=== PATIENT | female | born 1985 | race Caucasian/White ===

== ENCOUNTER → 2016-08-20 | Outpatient (CLI) | payer BC, MEDICARE ==
[2016-08-20 11:37] LABS: Blood Urea Nitrogen 11 mg/dL (7-17); Non-African American GFR(MDRD) >60 (>60 ml/min/1.73 sqM)
== END | disposition home or self-care (01) ==
LOC: LABWHC1 10:31
PROVIDERS: ATTEND Psychiatry & Neurology Neurology
DX: R51 Headache (principal)
CPT/HCPCS: 36415; 82565; 84520

== ENCOUNTER → 2016-08-24 | Outpatient (CLI) | payer BC, MEDICARE ==
--- NOTE | 2016-08-24 10:50 | MR ---
MRI of the brain with and without contrast HISTORY: Headaches. COMPARISON: 02/13/2016 TECHNIQUE: T1-weighted sagittal, T2, FLAIR, and diffusion axial, postcontrast T1 axial and coronal vi ews of the brain are submitted. CONTRAST: 13 mL FINDINGS: There is no evidence of acute ischemia. The ventricles, basal cisterns, and sulci overlying the co nvexities are consistent with the patient's age. There is no mass effect or enhancing mass. Craniocervical junction maintained. Sella turcica has a normal appearance. No evidence of cerebellopo ntine angle mass. Changes of mild chronic sinusitis. WHITE MATTER: Previous noted 2 punctate areas within the white matter as well-seen on today's exam. IMPRESSION: 1. No acute intracranial process
== END | disposition home or self-care (01) ==
LOC: RADMRIMAIN 08:35
PROVIDERS: ATTEND Psychiatry & Neurology Pain Medicine
DX: R51 Headache (principal)
CPT/HCPCS: 70553; A9577

== ENCOUNTER → 2016-11-28 | Outpatient (CLI) | payer BC, MEDICARE ==
[2016-11-28 11:33] LABS: % Iron Saturation 38.5 % (20-50)
== END | disposition home or self-care (01) ==
LOC: LABWHC1 10:25
PROVIDERS: ATTEND Family Medicine
DX: K14.0 Glossitis (principal)
CPT/HCPCS: 36415; 82607; 82728; 83540; 83550; 84207; 84425; 86235

== ENCOUNTER → 2016-12-07 | Outpatient (CLI) | payer BC, MEDICARE, OTHER ==
--- NOTE | 2016-12-07 13:56 | US ---
EXAMINATION TYPE: US thyroid st tissue head/neck DATE OF EXAM: 12/07/2016 COMPARISON: NONE CLINICAL HISTORY: E05.90 HYPERTHYROIDISM. Abnormal labs GLAND SIZE: Right Lobe: 4.4 x 1.1n x 1.3 cm Overall Parenchyma: heterogenous Left Lobe: 4.0 x 1.6 x 1.2 cm Overall Parenchyma: heterogeneous Isthmus Thickness: 0.2 cm NODULES RIGHT: # of nodules measured on right: 0 LEFT: # of nodules measured on left: 0 ISTHMUS: # of nodules measured in the isthmus: 0 Bilateral neck scanned. In left neck lateral to thyroid, lymph node appearing lesion seen = 2.0 x 0.6 x 0.4 cm IMPRESSION: 1. Thyroid heterogeneity without distinct nodule. 2. Lymph node as discussed above.
== END | disposition home or self-care (01) ==
LOC: RADUSWWP 12:57
PROVIDERS: ATTEND Family Medicine
DX: E05.90 Thyrotoxicosis, unspecified without thyrotoxic crisis or storm (principal)
CPT/HCPCS: 76536

== ENCOUNTER → 2017-05-22 | Outpatient (CLI) | payer BC, MEDICARE, OTHER ==
--- NOTE | 2017-05-24 08:21 | MR ---
EXAMINATION TYPE: MR brain wo/w con DATE OF EXAM: 05/22/2017 COMPARISON: 08/24/2016 HISTORY: Headaches, Gadavist 5.5ml TECHNIQUE: Multiplanar, multisequence images of the brain and brainstem is performed without and with IV contras t, utilizing 5.5 mL intravenous Gadavist . Ventricles and sulci appear normal. There is no mass effect nor midline shift. There is no sign of in tracranial hemorrhage. Brainstem appears normal. Corpus callosum is normal. Sella turcica is normal. There is a 2 mm focus of increased signal on the FLAIR images at the dickens-white matter junction right parietal lobe of doubtful significance. The contrast images show no pathologic enhancement. Optic ch iasm is normal. IMPRESSION: Negative MR scan of the brain. No adverse change compared to old exam.
== END | disposition home or self-care (01) ==
LOC: RADMRIMAIN 13:13
PROVIDERS: ATTEND Psychiatry & Neurology Neurology
DX: R51 Headache (principal); Z88.2 Allergy status to sulfonamides; Z88.5 Allergy status to narcotic agent; Z88.8 Allergy status to other drugs, medicaments and biological substances
CPT/HCPCS: 82565; 70553; A9581

== ENCOUNTER → 2017-06-16 | Outpatient (CLI) | payer MEDICARE ==
[2017-06-17 11:58] LABS: Alt. alternata IgE Class CLASS 0; Alternaria alternata IgE <0.35 kU/L (<0.35); Asperg. fumagatus IgE <0.35 kU/L (<0.35); Asperg. fumagatus IgE Class CLASS 0; Aureo. pullulans IgE <0.35 kU/L (<0.35); Birch(Com.Silvr) IgE <0.35 kU/L (<0.35); Birch(Com.Silvr) IgE Class CLASS 0; Candida albicans IgE Class CLASS 0; Clad herbarum IgE <0.35 kU/L (<0.35); Cottonwood IgE <0.35 kU/L (<0.35); Epicoccum purpurascens Class CLASS 0; Epicoccum purpurascens IgE <0.35 kU/L (<0.35); Maple (Box Elder) IgE <0.35 kU/L (<0.35); Maple (Box Elder) IgE Class CLASS 0; Mucor racemosus IgE <0.35 kU/L (<0.35); Mucor racemosus IgE Class CLASS 0; Oak IgE <0.35 kU/L (<0.35); Rhizopus nigricans IgE <0.35 kU/L (<0.35); S.rostrata/Helminth Class CLASS 0; S.rostrata/Helminth IgE <0.35 kU/L (<0.35); Sycamore(Mpl.Lf) IgE <0.35 kU/L (<0.35); Walnut Tree IgE <0.35 kU/L (<0.35); Walnut Tree IgE Class CLASS 0; White Ash IgE Class CLASS 0
[2017-06-17 11:59] LABS: Cat Epith & Dander IgE <0.35 kU/L (<0.35); Cat Epith & Dander IgE Class CLASS 0; Cockroach IgE <0.35 kU/L (<0.35); Com. Pigweed IgE <0.35 kU/L (<0.35); Com. Pigweed IgE Class CLASS 0; Dermato. Pteronyssinus IgE 8.93 kU/L (<0.35); Dermato. farinae IgE 4.66 kU/L (<0.35); Dermato. farinae IgE Class CLASS III; Dog Dander IgE <0.35 kU/L (<0.35); English Plantain IgE Class CLASS 0; Johnson Grass IgE Class CLASS 0; Lamb's Quarter IgE <0.35 kU/L (<0.35); Lamb's Quarter IgE Class CLASS 0; Timothy Grass IgE <0.35 kU/L (<0.35)
[2017-06-22 13:00] LABS: Beef IgG 28.1 mcg/mL (< 2.0); Chicken Meat IgG 6.2 mcg/mL (< 2.0); Corn IgG 13.6 mcg/mL (< 2.0); Peanut IgG 15.1 mcg/mL (< 2.0); Pork IgG 14.9 mcg/mL (< 2.0); Potato IgG 11.7 mcg/mL (< 2.0); Soybean IgG 8.2 mcg/mL (< 2.0); Tomato IgG 12.1 mcg/mL (< 2.0); Wheat IgG 25.3 mcg/mL (< 2.0)
== END | disposition home or self-care (01) ==
LOC: LABWHC1 09:27
PROVIDERS: ATTEND Otolaryngology
DX: J30.89 Other allergic rhinitis (principal)
CPT/HCPCS: 36415; 86001; 86003

== ENCOUNTER → 2018-01-19 | Outpatient (CLI) | payer MEDICARE, OTHER ==
--- NOTE | 2018-01-19 17:23 | US ---
EXAMINATION TYPE: US pelvis complete transvag DATE OF EXAM: 01/19/2018 COMPARISON: NONE CLINICAL HISTORY: N92.0 Menorrhagia. TECHNIQUE: Transvaginal (TV) and Transabdominal (TA) . Transabdominal sonographic images of the pel vis were acquired. Transvaginal sonographic images were medically necessary to better assess the fol lowing anatomy: ovaries Date of LMP: 12/27/17 EXAM MEASUREMENTS: Uterus: 7.1 x 3.5 x 4.0 cm Endometrial Stripe: 0.3 cm Right Ovary: 3.2 x 1.4 x 1.5 cm Left Ovary: 2.6 x 1.1 x 1.3 cm 1. Uterus: Retroverted, multiple fibroids largest measuring 2.0 x 1.7 x 2.7cm 2. Endometrium: wnl 3. Right Ovary: irregular shaped follicle measuring 2.0 x 1.0 x 1.3cm 4. Left Ovary: wnl 5. Bilateral Adnexa: wnl 6. Posterior cul-de-sac: wnl IMPRESSION: Normal endometrium. Small uterine fibroids. The largest measures 2 cm. Irregular right ov radha cyst. No solid adnexal mass or free fluid.
== END | disposition home or self-care (01) ==
LOC: RADUSWWP 16:13
PROVIDERS: ATTEND Family Medicine
DX: D25.9 Leiomyoma of uterus, unspecified (principal); N83.209 Unspecified ovarian cyst, unspecified side
CPT/HCPCS: 76830; 76856

== ENCOUNTER → 2018-02-09 | Outpatient (CLI) | payer MEDICARE, OTHER ==
--- NOTE | 2018-02-09 12:53 | MR ---
EXAMINATION TYPE: MR brain wo/w con DATE OF EXAM: 02/09/2018 COMPARISON: Prior MRI brain May 22, 2017 HISTORY: Headache unusual duration per order. Sudden onset dizziness or hearing loss per patient. TECHNIQUE: Multiplanar, multisequence images of the brain and brainstem is performed without and with IV contras t, utilizing 6.5 mL intravenous Gadavist . FINDINGS: Diffusion weighted images demonstrate no evidence of a recent infarct or other diffusion ab normality. There is no extra-axial fluid collection or significant white matter signal abnormality. The ventricular system and cisternal spaces are normal in size and appearance. The brain volume is age appropriate. Midline structures demonstrate normal morphology. The craniocervical junction appears within normal limits. Post contrast images demonstrate no abnormal enhancement. The dural venous sinuses appear pa tent. The visualized sinuses are clear and the globes are intact. IMPRESSION: Unremarkable study. No significant change from prior.
== END ==
LOC: RADMRIMAIN 11:47
PROVIDERS: ATTEND Psychiatry & Neurology Neurology
DX: R51 Headache (principal)
CPT/HCPCS: 70553; A9581

== ENCOUNTER → 2018-06-04 | Outpatient (CLI) | payer OTHER, MEDICARE ==
[2018-06-04 12:14] LABS: Basophils % (A) 1 %; Eosinophils # (A) 0.3 k/uL (0-0.7); Eosinophils % (A) 4 %; HCT 41.3 % (34.0-46.0); HGB 13.7 gm/dL (11.4-16.0); Lymphocytes # (A) 2.6 k/uL (1.0-4.8); Lymphocytes % (A) 37 %; MCH 29.9 pg (25.0-35.0); MCHC 33.1 g/dL (31.0-37.0); MCV 90.1 fL (80.0-100.0); Mean Platelet Volume 8.9; Monocytes # (A) 0.3 k/uL (0-1.0); Monocytes % (A) 5 %; Neutrophils # (A) 3.7 k/uL (1.3-7.7); Neutrophils % (A) 53 %; Platelet Count 196 k/uL (150-450); RBC 4.59 m/uL (3.80-5.40)
[2018-06-04 17:13] LABS: Albumin 4.4 g/dL (3.80-4.90); Albumin/Globulin Ratio 1.76 (1.20-2.10); Anion Gap 10.4 mmol/L (4.00-12.00); Calcium 9.3 mg/dL (8.7-10.3); Carbon Dioxide 23.6 mmol/L (21.6-31.8); Globulin 2.5 g/dL (1.6-3.3); LDL Cholesterol,Calculated 107.8 mg/dL (0.0-131.0); Potassium 4.2 mmol/L (3.5-5.5); Total Bilirubin 0.5 mg/dL (0.2-1.2); Total Protein 6.9 g/dL (6.2-8.2); VLDL Calculation 17.2 mg/dL (5.00-40.00)
[2018-06-04 17:21] LABS: T4, Free (Free Thyroxine) 1.3 ng/dL (0.80-1.80)
== END | disposition home or self-care (01) ==
LOC: LABWHC1 11:29
PROVIDERS: ATTEND Family Medicine
DX: Z00.00 Encounter for general adult medical examination without abnormal findings (principal); F41.1 Generalized anxiety disorder; Z13.220 Encounter for screening for lipoid disorders
CPT/HCPCS: 36415; 80053; 80061; 84439; 84443; 85025